=== PATIENT | female | born 1935 | race Caucasian/White ===

== ENCOUNTER 2016-04-02 15:54 | Outpatient (CLI) | payer MEDICARE | END 2016-04-02 15:55 | disposition home or self-care (01) | DX: G31.9 Degenerative disease of nervous system, unspecified (principal) ==

== ENCOUNTER 2016-05-24 09:58 | Outpatient (CLI) | payer MEDICARE | END 2016-05-24 09:59 | disposition home or self-care (01) | DX: M25.562 Pain in left knee (principal) ==